=== PATIENT | female | born 1955 | race African-American/Black ===

== ENCOUNTER 2017-06-30 07:42 | Day surgery (SDC) | payer OTHER ==
[2017-06-30 09:03] VITALS: BMI 29.0
[2017-06-30] MEDS ORDERED: LIDOCAINE HCL/PF 2% SDV 5ML VIAL ONE (09:27)
[2017-06-30] MEDS ORDERED: PROPOFOL 20 ML ONE ×2 (09:27)
[2017-06-30 10:41] VITALS: TEMP 98
[2017-06-30 10:45] VITALS: BP 149/69
[2017-06-30 13:44] VITALS: PULSE 83
--- NOTE | 2017-07-01 10:57 | PATH ---
Surgical Pathology Report Patient Name: EDWINA GARG [facility]. Rec. #: [id number] /Age/Gender: 1955 (Age: 61) / F Account: [id number] Location: [facility]-ENDOSCOPY Taken: 06/30/2017 Received: 06/30/2017 Reported: 07/01/2017 Physicians: Angelita Quevedo M.D. Specimen(s) Received BX DESCENDING COLON POLYPS Clinical History Polyp surveillance Final Diagnosis COLON, DESCENDING, BIOPSY: HYPERPLASTIC POLYP. Electronically Signed Santos Velazquez M.D. Gross Description Received in formalin, labeled "biopsy descending colon polyps" are 4 joseph, irregular portions of soft tissue ranging from 0.2-0.5 cm. in greatest dimension. The specimens are submitted in toto in one cassette. 06/30/201706/30/2017
== END 2017-06-30 11:40 | disposition home or self-care (01) ==
LOC: JASU-ENDO 07:42
PROVIDERS: ATTEND Internal Medicine Gastroenterology
PROC: 0DBM8ZX Excision of Descending Colon, Via Natural or Artificial Opening Endoscopic, Diagnostic (ICD-10-PCS; principal; 2017-06-30 10:00)
DX: D12.4 Benign neoplasm of descending colon (principal); K57.30 Diverticulosis of large intestine without perforation or abscess without bleeding; K64.8 Other hemorrhoids; Z86.010 Personal history of colon polyps
CPT/HCPCS: 88305-TC